=== PATIENT | female | born 1960 | race Hispanic/Latino ===

== ENCOUNTER 2021-04-03 20:48 | Emergency (ER) | payer BC, OTHER ==
[~2021-04-03] VITALS: Ht 149.9 cm; Wt 75.3 kg
[2021-04-03] MEDS ORDERED: LACTATED RINGERS 1000ML 1,000 ML IV ONE (21:00)
[2021-04-03 21:03] LABS: BASOPHILS % (AUTO) 0.5 % (0.0-5.0); EOSINOPHILS % (AUTO) 1.1 % (0.0-8.0); HEMATOCRIT 36.8 % (36-48); LYMPHOCYTES % (AUTO) 39.6 % (21.0-51.0); MEAN CORPUSCULAR HEMOGLOBIN 29.5 pg (27.0-33.0); MEAN CORPUSCULAR HGB CONC 33.2 g/dL (32.0-36.0); MEAN CORPUSCULAR VOLUME 89.1 fL (79-99); MONOCYTES % (AUTO) 7.3 % (3.0-13.0); NEUTROPHILS % (AUTO) 51.2 % (40.0-77.0); PLATELET COUNT (AUTO) 276 K/uL (130-400); RED BLOOD CELL COUNT(AUTO) 4.13 MIL/uL (4.00-5.50); RED CELL DISTRIBUTION WIDTH 12.1 % (11.0-15.5); WHITE BLOOD COUNT (AUTO) 7.6 K/uL (4.8-10.8)
[2021-04-03 21:22] LABS: ALBUMIN 3.7 g/dL (3.5-5.0); BILIRUBIN,TOTAL 0.4 mg/dL (0.2-1.0); CREATININE 0.9 mg/dL (0.5-1.5); POTASSIUM 3.6 mmol/L (3.5-5.1); TOTAL PROTEIN, SERUM 6.8 g/dL (6.0-8.3)
[2021-04-03 22:29] LABS: APPEARANCE,URINE Clear (CLEAR); BILIRUBIN,URINE Negative (NEGATIVE); COLOR,URINE Yellow (YELLOW); GLUCOSE, URINE (UA) Negative (NEGATIVE); KETONES,URINE Negative (NEGATIVE); LEUKOCYTE ESTERASE ,URINE Small (NEGATIVE); NITRATE,URINE Negative (NEGATIVE); OCCULT BLOOD,URINE Negative (NEGATIVE); PROTEIN,URINE Negative (NEGATIVE)
[2021-04-03 22:41] LABS: BACTERIA,URINE Rare /HPF (None Seen); MUCUS,URINE Rare LPF (None Seen); RBC,URINE 0-1 /HPF (0-1)
[2021-04-04] MEDS ORDERED: IOHEXOL 350 MG/ML 100ML INFUS..BTL IV ONE (01:11)
[2021-04-04 03:24] VITALS: BP 139/69
== END 2021-04-04 03:38 | disposition home or self-care (01) ==
LOC: EDH 20:48
DX: R55 Syncope and collapse (principal); R10.2 Pelvic and perineal pain; R73.9 Hyperglycemia, unspecified; R16.0 Hepatomegaly, not elsewhere classified; I10 Essential (primary) hypertension
CPT/HCPCS: 36415; 74177; 80053; 81001; 82550; 84484; 85025; 96360; 99284; J7120; Q9967

== ENCOUNTER 2021-04-27 05:37 | Day surgery (SDC) | payer BC ==
[2021-04-26 16:51] VITALS: BP 136/71
[2021-04-26 16:57] LABS: BASOPHILS % (AUTO) 0.6 % (0.0-5.0); EOSINOPHILS % (AUTO) 1.3 % (0.0-8.0); HEMATOCRIT 41.8 % (36-48); LYMPHOCYTES % (AUTO) 30.3 % (21.0-51.0); MEAN CORPUSCULAR HEMOGLOBIN 29.7 pg (27.0-33.0); MEAN CORPUSCULAR HGB CONC 33.7 g/dL (32.0-36.0); MONOCYTES % (AUTO) 7.1 % (3.0-13.0); NEUTROPHILS % (AUTO) 60.5 % (40.0-77.0); PLATELET COUNT (AUTO) 308 K/uL (130-400); RED BLOOD CELL COUNT(AUTO) 4.75 MIL/uL (4.00-5.50); RED CELL DISTRIBUTION WIDTH 12.1 % (11.0-15.5); WHITE BLOOD COUNT (AUTO) 8.9 K/uL (4.8-10.8)
[2021-04-27] VITALS (18 sets, daily range): BP systolic 96–133; BP diastolic 48–91
[~2021-04-27] VITALS: Ht 149.9 cm; Wt 76.9 kg
[~2021-04-27 05:37] MED LIST: OLME-7 PO; ROSU10TA28 PO; SITA1TAB6 PO; VENL-191 PO
[2021-04-27] MEDS ORDERED: LACTATED RINGERS 1000ML 1,000 ML IV SCH (08:00)
[2021-04-27] MEDS ORDERED: 0.9%NACL 1000ML 1,000 ML IV ONE (08:25)
[2021-04-27] MEDS ORDERED: SUCCINYLCHOLINE CHLORIDE 20 MG/ML 10 ML VIAL ONE (12:07)
[2021-04-27] MEDS ORDERED: LIDOCAINE PF 100MG/5ML (2%) SYRINGE 5ML ONE (12:07)
[2021-04-27] MEDS ORDERED: DEXAMETHASONE SOD PHOSPHATE 10MG/ML 1ML VIAL ONE (12:07)
[2021-04-27] MEDS ORDERED: MIDAZOLAM HCL 1 MG/ML 2ML VIAL ONE (12:07)
[2021-04-27] MEDS ORDERED: PROPOFOL 10 MG/ML 20ML VIAL IV ONE (12:08)
[2021-04-27] MEDS ORDERED: ROCURONIUM 10MG/1ML SYR 10 MG/ML ML ONE (12:08)
[2021-04-27] MEDS ORDERED: GLYCOPYRROLATE 1 MG/5 ML SYRINGE ONE (12:08)
[2021-04-27] MEDS ORDERED: NEOSTIGMINE 5MG/5ML SYR IV ONE (12:08)
[2021-04-27] MEDS ORDERED: FENTANYL CITRATE PF 50 MCG/1 ML 2ML VIAL ONE (12:08)
[2021-04-27] MEDS ORDERED: MEPERIDINE-PF 25 MG/ML SYG ONE (13:24)
[2021-04-27] MEDS ORDERED: ACETAMINOPHEN WITH CODEINE 1 TAB TAB ONE (14:09)
[2021-04-27] MEDS ORDERED: ACETAMINOPHEN WITH CODEINE 1 TAB TAB PO SCH (16:00)
== END 2021-04-27 14:55 | disposition home or self-care (01) ==
LOC: DAH 05:37
PROVIDERS: ATTEND Obstetrics & Gynecology
DX: R10.2 Pelvic and perineal pain (principal); Z20.822 Contact with and (suspected) exposure to COVID-19; N73.6 Female pelvic peritoneal adhesions (postinfective); I10 Essential (primary) hypertension; E78.5 Hyperlipidemia, unspecified; K21.9 Gastro-esophageal reflux disease without esophagitis; E66.8 Other obesity; Z90.710 Acquired absence of both cervix and uterus; Z90.49 Acquired absence of other specified parts of digestive tract; Z98.890 Other specified postprocedural states; Z68.34 Body mass index [BMI] 34.0-34.9, adult; Z79.899 Other long term (current) drug therapy
CPT/HCPCS: 36415; 49329; 82948 ×2; 85025; 86850; 86900; 86901; 87635; A4215 ×2; A4216; A4221; A4222; A4223 ×3; A4344; A4606 ×2; A4649 ×2; A4663; A6260; C1769 ×2; C9803; J0330; J1100; J2001; J2175; J2250; J2704; J2710; J3010; J3490; J7030

== ENCOUNTER 2022-07-22 02:06 | Emergency (ER) | payer BC ==
[~2022-07-22] VITALS: Ht 149.9 cm; Wt 73.0 kg
[2022-07-22] MEDS ORDERED: KETOROLAC 60 MG VIAL (30MG/ML) IM ONE ×2 (04:00→04:30)
[2022-07-22] MEDS ORDERED: IBUP-2070 PO (04:23)
[2022-07-22] MEDS ORDERED: CYCL-309 PO (04:23)
[2022-07-22 04:36] VITALS: BP 127/65
== END 2022-07-22 04:38 | disposition home or self-care (01) ==
LOC: EDH 02:06
DX: S29.9XXA Unspecified injury of thorax, initial encounter (principal); I10 Essential (primary) hypertension; Z79.1 Long term (current) use of non-steroidal anti-inflammatories (NSAID); Z79.84 Long term (current) use of oral hypoglycemic drugs; Z79.899 Other long term (current) drug therapy; W22.8XXA Striking against or struck by other objects, initial encounter; Y93.89 Activity, other specified; Y92.89 Other specified places as the place of occurrence of the external cause; Y99.8 Other external cause status
CPT/HCPCS: 99283; 71101; 96372; J1885

== ENCOUNTER 2025-03-02 19:32 | Emergency (ER) | payer BC ==
[~2025-03-02] VITALS: Ht 149.9 cm; Wt 70.8 kg
[~2025-03-02 19:32] MED LIST changes: +EMPA25TA PO; +LORA0.5T83 PO; +OLME-29 PO; -OLME-7 PO; +PANT40TA54 PO; +PRAS10TA9 PO; -ROSU10TA28 PO; +ROSU10TA98 PO; -SITA1TAB6 PO; -VENL-191 PO; +VENL75CA97 PO
--- NOTE | 2025-03-02 19:44 | EKG ---
[facility] Test Date: 2025-03-02 Test Time: 19:37:53 Pat Name: GILL NORTON Department: ED Room: Gender: F Pearl Stringer: [id number] : 1960 Requested By: YFN SANCHEZ Order Number: [id number] Reading MD: Trudy Dasilva Measurements Intervals [place] Rate: 97 P: 44 DC: 161 QRS: 67 QRSD: 93 T: -1 QT: 370 QTc: 470 Interpretive Statements Sinus rhythm Low voltage, precordial leads Consider anterior infarct Compared to ECG 08/22/2024 19:17:58 Low QRS voltage now present Myocardial infarct finding now present Electronically Signed On 03-03-2025 12:14:24 CDT by Trudy Dasilva Please click the below link to view image of tracing.
[2025-03-02 19:56] LABS: IMMATURE GRANULOCYTE ABSOLUTE 0.03 K/uL (0-1); NUCLEATED RED BLOOD CELLS 0.0 % (0.0-0.19); PLATELET COUNT (AUTO) 268 K/uL (130-400); RED BLOOD CELL COUNT(AUTO) 4.38 MIL/uL (4.00-5.50); RED CELL DISTRIBUTION WIDTH 12.8 % (11.0-15.5); WHITE BLOOD COUNT (AUTO) 11.8 K/uL (4.8-10.8)
[2025-03-02 20:05] LABS: CREATININE 1.0 mg/dL (0.5-1.0); GLOMERULAR FILTR. RATE CALC 63.0 mL/min (>90); GLUCOSE,RANDOM 159.0 mg/dL (70-105); SODIUM SERUM 140.0 mmol/L (136-145); UREA NITROGEN, BLOOD 19.0 mg/dL (7-18)
[2025-03-02 20:09] LABS: INR <= 0.93 (0.85-1.15)
--- NOTE | 2025-03-02 20:26 | HMCIMG ---
EXAM: X-RAY CHEST, 1 VIEW Technique: A single frontal portable projection of the chest was obtained. Evaluation is inherently limited on a single view compared with an upright two-view examination, particularly for small pleural effusions and pneumothorax. Clinical Information: Shortness of breath. Findings: The lungs show mild prominence of the bronchovascular markings without focal air-space consolidation. No discrete pulmonary nodules are identified. No pleural effusion is seen. No pneumothorax is detected. The cardiac silhouette is within normal size limits for technique. The mediastinal contours are not widened. The visualized osseous structures show no acute abnormality. Impression: * Mild prominence of bronchovascular markings; otherwise no acute cardiopulmonary process. * No pleural effusion or pneumothorax identified on this single-view examination. /[place]
--- NOTE | 2025-03-02 20:48 | HMCIMG ---
EXAM: CT SCAN OF THE BRAIN WITHOUT CONTRAST Technique: Axial noncontrast computed tomography of the brain was performed from skull base to vertex with sagittal and coronal reformations. Radiation dose reduction was achieved using [id number]-hp-reasonably-achievable principles, including automatic exposure control, patient size???based tube current and voltage modulation, and iterative reconstruction. Clinical Information: Syncope. Comparison: None. Findings: No acute intracranial hemorrhage is identified. No acute territorial cortical infarct is identified by computed tomography. A chronic lacunar infarct is present in the right lentiform nucleus. Daily???white matter differentiation is preserved. The midline structures are not deviated. The ventricular system is normal in size and configuration for age. Basal cisterns and sylvian fissures are patent. There are scattered periventricular and subcortical white matter hypodensities compatible with chronic small vessel ischemic change. The brainstem and cerebellum are unremarkable. The cerebellopontine angles and internal auditory canals are clear. The pituitary gland, pineal gland, and optic chiasm are unremarkable. The visualized paranasal sinuses are clear. The skull base and calvarium show no acute osseous abnormality.IMPRESSION: 1. Chronic lacunar infarct in the right lentiform nucleus. 2. Scattered periventricular and subcortical white matter hypodensities compatible with chronic small vessel ischemic change. 3. No acute intracranial hemorrhage or territorial cortical infarct. 4. Normal ventricular size and configuration for age. 5. No midline shift or mass effect. /[place]
[2025-03-02 23:11] VITALS: BP 127/65; PULSE 90; RESP 16; TEMP 98.3; O2SAT 98
--- NOTE | 2025-03-02 23:15 | ERN ---
General Chief Complaint: Syncope Stated Complaint: NEAR SYNCOPE Time Seen by MD: 19:33 History of Present Illness Initial Comments 64-year-old female came in for presyncopal episode. Allergies: Coded Allergies: No Allergy Information Available (Verified Allergy, Unknown, 04/03/21) No Known Drug Allergies (Unverified Allergy, Unknown, 08/22/24) Home Meds Reported Medications Pantoprazole Sodium (Pantoprazole Sodium) 40 Mg Tablet.dr, 40 MG PO DAILY, TAB 08/23/24 Rosuvastatin Calcium (Rosuvastatin Calcium) 10 Mg Tablet, 20 MG PO DAILY, TAB 08/23/24 Venlafaxine HCl (Venlafaxine HCl ER) 75 Mg Cap.er.24h, 150 MG PO DAILY, CAPSULE.DR 08/23/24 Empagliflozin (Jardiance) 25 Mg Tablet, 25 MG PO DAILY, TAB 08/23/24 Lorazepam (Ativan) 0.5 Mg Tablet, 0.5 MG PO BID, TAB 08/23/24 Prasugrel HCl (Prasugrel HCl) 10 Mg Tablet, 10 MG PO DAILY, TAB 08/23/24 Olmesartan/Hydrochlorothiazide (Olmesartan-Hctz 20-12.5 mg Tab) 1 Each Tablet, 1 EACH PO DAILY, TAB 04/26/21 Past Medical History Past Medical History: Diabetes-Type II, High Cholesterol, Heart Disease, Hypertension Past Surgical History: Appendectomy, Hysterectomy, Cholecystectomy, Other Surgical History Other: CARDIAC STENTS Social History Social History: Lives with family ROS Dictation Presyncope Physical Exam General Appearance: (+) no apparent distress Neck: (+) normal inspection, (+) supple Respiratory: (+) chest non-tender, (+) lungs clear Heart: (+) regular, (+) no gallop Gastrointestinal: (+) soft, (+) non-tender Extremities: (+) normal range of motion, (+) non-tender Neurologic/Psychiatric: (+) normal speech, (+) no motor defecits Results Laboratory and Microbiology Lab and Micro Result Laboratory Tests Test 03/02/25 19:47 White Blood Count 11.8 K/uL (4.8-10.8) H Red Blood Count 4.38 MIL/uL (4.00-5.50) Hemoglobin 13.0 g/dL (12.0-16.0) Hematocrit 38.5 % (36-48) Mean Corpuscular Volume 87.9 fL (79-99) Mean Corpuscular Hemoglobin 29.7 pg (27.0-33.0) Mean Corpuscular Hemoglobin Concent 33.8 g/dL (32.0-36.0) Red Cell Distribution Width 12.8 % (11.0-15.5) Platelet Count 268 K/uL (130-400) Mean Platelet Volume 9.2 fL (7.5-10.5) Immature Granulocyte % (Auto) 0.3 % (0-1) Neutrophils (%) (Auto) 63.2 % (40.0-77.0) Lymphocytes (%) (Auto) 26.1 % (21.0-51.0) Monocytes (%) (Auto) 9.2 % (3.0-13.0) Eosinophils (%) (Auto) 0.8 % (0.0-8.0) Basophils (%) (Auto) 0.4 % (0.0-5.0) Neutrophils # (Auto) 7.5 K/uL (1.8-7.7) Lymphocytes # (Auto) 3.1 K/uL (1.0-4.8) Monocytes # (Auto) 1.1 K/uL (0.1-1.0) H Eosinophils # (Auto) 0.10 K/uL (0.00-0.70) Basophils # (Auto) 0.05 K/uL (0.00-0.20) Absolute Immature Granulocyte (auto 0.03 K/uL (0-1) Nucleated Red Blood Cells 0.0 % (0.0-0.19) Prothrombin Time 9.8 SEC (9.6-11.6) Prothromb Time International Ratio <= 0.93 (0.85-1.15) Activated Partial Thromboplast Time 22.4 SEC (26.3-35.5) L Sodium Level 140 mmol/L (136-145) Potassium Level 3.6 mmol/L (3.5-5.1) Chloride Level 102 mmol/L (101-111) Carbon Dioxide Level 28 mmol/L (21-32) Blood Urea Nitrogen 19 mg/dL (7-18) H Creatinine 1.0 mg/dL (0.5-1.0) Glomerular Filtration Rate Calc 63 mL/min (>90) Random Glucose 159 mg/dL (70-105) H Lactic Acid Level 2.5 mmol/L (0.8-2.5) Total Calcium 9.2 mg/dL (8.5-10.1) Troponin I High Sensitivity < 4 ng/L (4-50) L Procalcitonin < 0.05 ng/mL (0.05-0.5) L MDM Patient is a follow up with the primary care physician. ED Course Orders Procedure Category Date Status Time 12 Lead Ekg Tracing- EKG 03/02/25 Complete Technical 19:34 Cbc With Differential LAB 03/02/25 Complete 19:34 Basic Metabolic Panel LAB 03/02/25 Complete 19:34 Lactic Acid LAB 03/02/25 Complete 19:34 Procalcitonin LAB 03/02/25 Complete 19:34 Pt And Ptt LAB 03/02/25 Complete 19:34 Troponin I High LAB 03/02/25 Complete Sensitivity 19:34 Urinalysis LAB 03/02/25 Logged W/Microscopic 19:34 Chest 1vw RAD 03/02/25 Resulted 19:34 Ct Head/Brain W/O CT 03/02/25 Resulted Contrast 19:34 Lactic Acid (Removed) LAB 03/02/25 Logged 22:57 Vital Signs Date Time Temp Pulse Resp B/P (MAP) Pulse Ox O2 Delivery O2 Flow Rate FiO2 03/02/25 22:20 98.2 92 16 122/69 98 Room Air* 0 21 03/02/25 19:43 98.2 95 16 106/64 98 Room Air* 0 21 03/02/25 19:33 97.3 96 19 121/50 93 Room Air 0 DX & DISP Disposition: Discharge Departure Impression: Primary Impression: Pre-syncope Condition: Stable Referrals: ABRIL DOWNING MD (PCP) YFN SANCHEZ MD Mar 02, 2025 23:15
== END 2025-03-02 23:25 | disposition home or self-care (01) ==
LOC: EDH 19:32
DX: R55 Syncope and collapse (principal); E11.9 Type 2 diabetes mellitus without complications; E78.00 Pure hypercholesterolemia, unspecified; I11.9 Hypertensive heart disease without heart failure; Z79.899 Other long term (current) drug therapy; Z79.84 Long term (current) use of oral hypoglycemic drugs; Z79.02 Long term (current) use of antithrombotics/antiplatelets; Z86.73 Personal history of transient ischemic attack (TIA), and cerebral infarction without residual deficits; Z90.49 Acquired absence of other specified parts of digestive tract; Z90.710 Acquired absence of both cervix and uterus; Z95.5 Presence of coronary angioplasty implant and graft
CPT/HCPCS: 36415; 70450; 71045; 80048; 83605; 84145; 84484; 85025; 85610; 85730; 93005; 99284